=== PATIENT | female | born 1930 | race Caucasian/White ===

== ENCOUNTER 2016-08-19 14:18 | Outpatient (CLI) | payer MEDICARE, BC ==
--- NOTE | 2016-08-19 19:54 | RAD ---
CHEST TWO VIEWS: 08/19/16 Comparison is made with the 07/20/15 study. The interstitial markings seem a little more prominent to day than before in a diffuse manner. There is low blunting of the left costophrenic angle, but this was present previously. No large lobar consolidations were seen. I do not feel the vessels are reall y congested. The heart size is stable. Arteriosclerotic change in the aorta is noted as usual. IMPRESSION: Mild increase in interstitial markings. Chronic blunting of the left costophrenic angle. Slight incr ease of interstitial markings can be seen in entities such as bronchitis, viral or mycoplasmal infec tions, etc. Currently, the appearance does not strongly resemble pulmonary edema. POS: HOME
== END 2016-08-19 14:19 | disposition home or self-care (01) ==
LOC: BURRAD 14:18
PROVIDERS: ATTEND Family Medicine
DX: R05 Cough (principal)
CPT/HCPCS: 71020

== ENCOUNTER 2017-01-04 16:17 | Emergency (ER) | payer MEDICARE, BC ==
[2017-01-04] MEDS ORDERED: Morphine Sulfate 2 MG/ML SYRINGE ONE (16:43)
[2017-01-04 16:59] LABS: PTT 30.6 SEC (22.9-36.1); Prothrombin Time 13.2 SEC (12.0-14.7)
[2017-01-04 17:05] LABS: Eosinophils 2 % (0-10); Hemoglobin 12.4 g/dL (12.0-16.0); Lymphocytes 29 % (21-51); MDiff Complete? YES; Mean Corpuscular HGB CONC 33.8 g/dL (32.0-36.0); Mean Corpuscular Hemoglobin 30.9 pg (27.0-31.0); Mean Corpuscular Volume 91.4 fl (81.0-99.0); Mean Platelet Volume 6.4 fL (7.4-10.4); Monocytes 10 % (0-10); Neutrophil 58 % (42-75); Platelet Count 230 thou/uL (130-400); RBC Distribution Width 12.5 % (11.5-14.5); Reactive Lymphocytes 1 % (0-10); Red Blood Cell (RBC) Count 4.01 mill/uL (4.20-5.40); White Blood Cell (WBC) Count 6.9 thou/uL (4.8-10.8)
[2017-01-04 17:06] LABS: ALT (SGPT) 11 U/L (8-55); AST (SGOT) 23 U/L (5-34); Albumin 3.7 g/dL (3.4-4.8); Alkaline Phosphatase 72 U/L (40-150); Anion Gap 17 mmol/L (10-20); BUN (Urea Nitrogen) 12 mg/dL (9.8-20.1); Bilirubin, Total 0.4 mg/dL (0.2-1.2); Calc. Creatinine Clearance 0 mL/min (70-130); Calcium 7.7 mg/dL (7.8-10.44); Carbon Dioxide 26 mmol/L (23-31); Chloride 93 mmol/L (98-107); Estimated GFR-MDRD 68; Globulin 3.7 g/dL (2.4-3.5); Glucose 129 mg/dL (83-110); Potassium 4.6 mmol/L (3.5-5.1); Protein, Total 7.4 g/dL (6.0-8.3); Sodium 131 mmol/L (136-145)
--- NOTE | 2017-01-04 23:05 | RAD ---
RIGHT LEG TWO VIEWS: 01/04/17 The tibia and fibula both appear intact. No fractures or areas of bony destruction were seen. Some s light degenerative changes are present in the knee joint. IMPRESSION: No acute bony finding. POS: HOME
--- NOTE | 2017-01-04 23:25 | RAD ---
LUMBAR SPINE THREE VIEWS 01/04/17 Marked scoliosis convexed right is seen. The patient's spine does not display exceptionally well, bu t no grossly fractures were identified. Disc space narrowing is present at L5-S1 and L4-L5 at the ve ry least. See CT of the lumbar spine to follow. The SI joints were symmetrical. The aorta is densely calcified. IMPRESSION: 1. Severe degenerative changes. 2. Scoliosis. 3. Arteriosclerosis. POS: HOME
--- NOTE | 2017-01-04 23:42 | CT ---
CT OF THE LUMBAR SPINE 01/04/[address] of the lumbar spine was performed for evaluation of pain. Axial slices were acquired, then coronal and sagittal reconstructions were done. No acute fracture was appreciated. There are severe diffuse degenerative changes. There are severe d iffuse degenerative changes throughout. A very minimal anterolisthesis of L4 on L5 is noted, most li carlita secondary to facet arthritis. There were no areas of bony destruction. Findings by level follow : T11-T12: Abundant degenerative change but no acute findings. T12-L1: Degenerative change but no acute findings. L1-L2: Bilateral foraminal narrowing due to osteophytes. The central canal is crowded at this point. L2-L3: Slight left foraminal stenosis. Abundant facet changes. L3-L4: Severe central canal stenosis and lateral recess stenosis. This is due to a combination of a small central canal, overgrown facets and ligamentous hypertrophy. There is considerable facet arthr itis. L4-L5: Very severe central canal stenosis and mild to moderate bilateral foraminal stenosis. L5-S1: Severe central canal stenosis and also probably a bulging disc osteophyte complex. At least m ild foraminal stenosis at this level. The SI joints were unremarkable. The visible portions of the abdomen were unremarkable. IMPRESSION: Scoliosis and severe degenerative change throughout the entire lumbar spine. There is particularly s evere spinal stenosis at L3-L4, L4-L5, and L5-S1. POS: HOME
== END 2017-01-04 18:42 | disposition home or self-care (01) ==
LOC: BURERS 16:17
DX: M54.41 Lumbago with sciatica, right side (principal); I10 Essential (primary) hypertension; E03.9 Hypothyroidism, unspecified; M79.604 Pain in right leg; Z79.82 Long term (current) use of aspirin; Z79.899 Other long term (current) drug therapy
CPT/HCPCS: 72100; 72131; 80053; 85025; 85610; 85730; 96374; J2270

== ENCOUNTER 2017-01-08 10:13 | Emergency (ER) | payer MEDICARE, BC ==
[2017-01-08 10:57] LABS: Bilirubin Negative (Negative); Blood, Urine Negative (Negative); Clarity Clear (Clear); Glucose, Urine (Dipstick) Negative (Negative); Leukocyte Small (Negative); Nitrite Negative (Negative); Protein, Urine (Dipstick) Negative (Neg-Trace); Specific Gravity, Urine 1.015 (1.005-1.030); Urobilinogen 0.2 mg/dL (0.2-1.0); pH, Urine 7.5 (5.0-9.0)
[2017-01-08 11:08] LABS: Bacteria/HPF Rare-Few HPF (None Seen); RBC/HPF 0-3 HPF (0-3); Squamous Epithelial 0-3 HPF (0-3); WBC/HPF 0-3 HPF (0-3)
[2017-01-08 11:08] LABS: #Basophils 0.1 thou/uL (0.0-0.2); #Lymphocytes 1.9 thou/uL (1.20-3.40); #Monocytes 0.8 thou/uL (0.11-0.59); %Basophils 0.6 % (0.0-1.0); %Eosinophils 0.2 % (0.0-10.0); %Lymphocytes 21.8 % (21.0-51.0); %Monocytes 8.6 % (0.0-10.0); %Neutrophils 68.8 % (42.0-75.0); Hemoglobin 12.1 g/dL (12.0-16.0); Mean Corpuscular HGB CONC 35.1 g/dL (32.0-36.0); Mean Corpuscular Hemoglobin 31.5 pg (27.0-31.0); Mean Corpuscular Volume 89.8 fl (81.0-99.0); Mean Platelet Volume 6.2 fL (7.4-10.4); Platelet Count 243 thou/uL (130-400); RBC Distribution Width 12.4 % (11.5-14.5); Red Blood Cell (RBC) Count 3.83 mill/uL (4.20-5.40); White Blood Cell (WBC) Count 8.7 thou/uL (4.8-10.8)
[2017-01-08 11:10] LABS: PTT 32.6 SEC (22.9-36.1); Prothrombin Time 13.5 SEC (12.0-14.7)
[2017-01-08 11:18] LABS: ALT (SGPT) 13 U/L (8-55); AST (SGOT) 24 U/L (5-34); Albumin 3.6 g/dL (3.4-4.8); Alkaline Phosphatase 57 U/L (40-150); Anion Gap 15 mmol/L (10-20); BUN (Urea Nitrogen) 15 mg/dL (9.8-20.1); Bilirubin, Total 0.4 mg/dL (0.2-1.2); Calc. Creatinine Clearance 0 mL/min (70-130); Calcium 7.6 mg/dL (7.8-10.44); Carbon Dioxide 25 mmol/L (23-31); Chloride 94 mmol/L (98-107); Estimated GFR-MDRD 67; Globulin 3.5 g/dL (2.4-3.5); Glucose 106 mg/dL (83-110); Protein, Total 7.1 g/dL (6.0-8.3); Sodium 129 mmol/L (136-145)
[2017-01-08 11:21] LABS: CKMB 2.1 ng/mL (0-6.6); Troponin I Less than 0.010 ng/mL (< 0.028)
--- NOTE | 2017-01-08 17:28 | CT ---
CT OF THE BRAIN 01/08/[address] was done and was compared with the prior study dated 07/09/12. Profound patchy deep white matter lucency is seen bilaterally consistent with chronic microvascular ischemia. It does not appear substantially different than the 2013 scan. Small acute strokes would b e easily masked against this background. There were no obvious findings of acute stroke, though MRI would be more sensitive to such. No bleeding, mass, or edema was seen. The calvarium appears normal. The sphenoid sinus is clear. The ventricular sizes are consistent with age and atrophy. IMPRESSION: Diffuse chronic ischemic changes but no definite acute findings. If clinical symptoms suggest acute stroke, then an MRI should be considered. POS: HOME
== END 2017-01-08 12:58 ==
LOC: BURERS 10:13
DX: M54.41 Lumbago with sciatica, right side (principal); E87.6 Hypokalemia; I10 Essential (primary) hypertension; E03.9 Hypothyroidism, unspecified; Z79.82 Long term (current) use of aspirin; Z79.891 Long term (current) use of opiate analgesic; Z79.899 Other long term (current) drug therapy
CPT/HCPCS: 36416; 51701; 70450; 80053; 81003; 81015; 82553; 84484; 85025; 85610; 85730; 93005; 94760; 96360; A4353

== ENCOUNTER 2018-12-10 13:29 | Emergency (ER) | payer MEDICARE, MEDICAID ==
[2018-12-10 14:04] LABS: #Basophils 0.1 thou/uL (0.0-0.2); #Eosinphils 0.4 thou/uL (0.0-0.7); #Lymphocytes 1.8 thou/uL (1.20-3.40); #Monocytes 0.7 thou/uL (0.11-0.59); %Basophils 0.6 % (0.0-1.0); %Eosinophils 4.8 % (0.0-10.0); %Lymphocytes 23.2 % (21.0-51.0); %Monocytes 8.3 % (0.0-10.0); %Neutrophils 63.2 % (42.0-75.0); Hemoglobin 10.8 g/dL (12.0-16.0); Mean Corpuscular HGB CONC 31.9 g/dL (32.0-36.0); Mean Corpuscular Hemoglobin 27.8 pg (27.0-31.0); Mean Corpuscular Volume 87.1 fL (78.0-98.0); Mean Platelet Volume 5.7 fL (7.4-10.4); Platelet Count 206 thou/uL (130-400); RBC Distribution Width 16.8 % (11.5-14.5); Red Blood Cell (RBC) Count 3.87 mill/uL (4.20-5.40); White Blood Cell (WBC) Count 7.9 thou/uL (4.8-10.8)
[2018-12-10 14:12] LABS: Clarity Clear (Clear)
[2018-12-10 14:13] LABS: Bilirubin Negative (Negative); Blood, Urine Negative (Negative); Glucose, Urine (Dipstick) Negative (Negative); Leukocyte Negative (Negative); Nitrite Negative (Negative); Protein, Urine (Dipstick) Negative (Neg-Trace); Urobilinogen 0.2 mg/dL (0.2-1.0)
[2018-12-10 14:21] LABS: ALT (SGPT) 12 U/L (8-55); AST (SGOT) 31 U/L (5-34); Albumin 3.7 g/dL (3.4-4.8); Alkaline Phosphatase 68 U/L (40-150); Anion Gap 17 mmol/L (10-20); BUN (Urea Nitrogen) 16 mg/dL (9.8-20.1); Bilirubin, Total 0.4 mg/dL (0.2-1.2); Calc. Creatinine Clearance 0 mL/min (70-130); Carbon Dioxide 25 mmol/L (23-31); Chloride 93 mmol/L (98-107); Estimated GFR-MDRD 31; Globulin 3.1 g/dL (2.4-3.5); Glucose 143 mg/dL (83-110); Lipase 22 U/L (8-78); Potassium 4.7 mmol/L (3.5-5.1); Protein, Total 6.8 g/dL (6.0-8.3); Sodium 130 mmol/L (136-145)
--- NOTE | 2018-12-10 15:07 | RAD ---
PORTABLE CHEST: Date: 12/10/18 Comparison made with the 08/19/16 study. FINDINGS: The patient is turned to the side, which makes seeing the left base, in particular, a little more dif ficult. Mild cardiomegaly seems no different than before. There is no vascular congestion or edema. N o lobar consolidation seen. There is some blunting of the left costophrenic angle, however, such was the case in 2017, so it may be chronic. Dense calcification is seen in the aortic arch. IMPRESSION: Cardiomegaly and arteriosclerosis with chronic changes. No definite acute findings. If symptoms persi st, a good PA and lateral view could be helpful. POS: HOME
== END 2018-12-10 15:20 | disposition home or self-care (01) ==
LOC: BURERS 13:29
DX: R53.1 Weakness (principal); E87.1 Hypo-osmolality and hyponatremia; T36.8X5A Adverse effect of other systemic antibiotics, initial encounter; E03.9 Hypothyroidism, unspecified; I11.0 Hypertensive heart disease with heart failure; I50.9 Heart failure, unspecified; Z86.73 Personal history of transient ischemic attack (TIA), and cerebral infarction without residual deficits; Z87.891 Personal history of nicotine dependence; Z79.899 Other long term (current) drug therapy
CPT/HCPCS: 36415; 51701; 71045; 80053; 81003; 83605; 83690; 84484; 85025; 87040; 93005; 94760; A4353

== ENCOUNTER 2019-02-09 12:52 | Emergency (ER) | payer MEDICARE, MEDICAID ==
[2019-02-09 13:19] LABS: #Basophils 0.1 thou/uL (0.0-0.2); #Eosinphils 0.4 thou/uL (0.0-0.7); #Lymphocytes 2.2 thou/uL (1.20-3.40); #Monocytes 0.6 thou/uL (0.11-0.59); #Neutrophils 3.8 thou/uL (1.40-6.50); %Eosinophils 5.5 % (0.0-10.0); %Lymphocytes 31.2 % (21.0-51.0); %Monocytes 8.8 % (0.0-10.0); %Neutrophils 53.6 % (42.0-75.0); Hemoglobin 11.7 g/dL (12.0-16.0); Mean Corpuscular HGB CONC 31.2 g/dL (32.0-36.0); Mean Corpuscular Hemoglobin 28.5 pg (27.0-31.0); Mean Corpuscular Volume 91.6 fL (78.0-98.0); Mean Platelet Volume 6.1 fL (7.4-10.4); Platelet Count 243 thou/uL (130-400); RBC Distribution Width 16.2 % (11.5-14.5); Red Blood Cell (RBC) Count 4.09 mill/uL (4.20-5.40); White Blood Cell (WBC) Count 7.1 thou/uL (4.8-10.8)
[2019-02-09 13:34] LABS: ALT (SGPT) 8 U/L (8-55); AST (SGOT) 22 U/L (5-34); Albumin 3.9 g/dL (3.4-4.8); Alkaline Phosphatase 72 U/L (40-150); Anion Gap 16 mmol/L (10-20); BUN (Urea Nitrogen) 15 mg/dL (9.8-20.1); Bilirubin, Total 0.4 mg/dL (0.2-1.2); Calc. Creatinine Clearance 0 mL/min (70-130); Calcium 10.8 mg/dL (7.8-10.44); Carbon Dioxide 27 mmol/L (23-31); Chloride 100 mmol/L (98-107); Estimated GFR-MDRD 48; Globulin 3.6 g/dL (2.4-3.5); Glucose 139 mg/dL (83-110); Magnesium 2.4 mg/dL (1.6-2.6); Potassium 5.1 mmol/L (3.5-5.1); Protein, Total 7.5 g/dL (6.0-8.3); Sodium 138 mmol/L (136-145)
--- NOTE | 2019-02-09 17:27 | ULT ---
RIGHT LOWER EXTREMITY VENOUS ULTRASOUND: Date: 02/09/19 Color duplex Doppler ultrasonography of the right lower extremity was performed. All deep veins are f reely compressible from groin to ankle. No echogenic clot was seen. Normal Doppler response to augmen tation maneuvers. IMPRESSION: No significant findings. No evidence of deep venous thrombosis. POS: HOME
== END 2019-02-09 13:52 | disposition home or self-care (01) ==
LOC: BURERS 12:52
DX: M54.41 Lumbago with sciatica, right side (principal); I10 Essential (primary) hypertension; Z86.73 Personal history of transient ischemic attack (TIA), and cerebral infarction without residual deficits; Z87.891 Personal history of nicotine dependence; Z79.899 Other long term (current) drug therapy; Z79.82 Long term (current) use of aspirin
CPT/HCPCS: 80053; 83605; 83735; 85025

== ENCOUNTER 2019-02-14 14:02 | Outpatient (CLI) | payer MEDICARE, MEDICAID ==
--- NOTE | 2019-02-14 14:34 | RAD ---
EXAM: 3 views of the lumbosacral spine HISTORY: Lumbar pain and right hip pain COMPARISON: 01/04/2017 FINDINGS: Moderate to severe scoliotic curvature of the spine is seen with intervertebral disc space narrowing and large bulky osteophyte formation. No acute fracture or subluxation is seen. The sacroiliac joints are unremarkable. Vascular calcifications are seen in the aorta. IMPRESSION: Severe degenerative changes of the lumbar spine without acute osseous abnormality. No sig nificant change has occurred compared to the prior exam.
--- NOTE | 2019-02-14 14:50 | RAD ---
RIGHT HIP TWO VIEW: 02/14/19 HISTORY: M25.551, pain of right hip joint. COMPARISON: Radiographs from 2012. FINDINGS: Mild degenerative disease right hip joint. The right obturator ring is intact. Advanced vascular calc ifications. Severe advanced degenerative disease of the lower lumbar spine. Right SI joint has modera te degenerative disease. Large subcortical cyst of the acetabulum. IMPRESSION: Degenerative changes. No acute osseous abnormality. POS: [facility]
== END 2019-02-14 14:03 | disposition home or self-care (01) ==
LOC: BURRAD 14:02
PROVIDERS: ATTEND Family Medicine
DX: M25.551 Pain in right hip (principal); M54.5 Low back pain; M47.816 Spondylosis without myelopathy or radiculopathy, lumbar region
CPT/HCPCS: 72100